=== PATIENT | male | born 1950 | race Caucasian/White ===

== ENCOUNTER 2018-09-05 08:59 | Day surgery (SDC) | payer MEDICARE ==
[2018-09-02 09:57] VITALS: BMI 20.9
[~2018-09-05 08:59] MED LIST: LACTATED RINGERS 1,000 ML IV SCH; LIDOCAINE 1% 20 ML VIAL (10MG/ML) FOR IV START INTRADERMA PRN
[2018-09-05 09:54] VITALS: RESP 16; TEMP 98.1
[2018-09-05] MEDS ORDERED: PROPOFOL 10 MG/ML 20 ML VIAL IV ONE (10:44)
[2018-09-05] MEDS ORDERED: LIDOCAINE 1% INJ 10MG/ML (20 ML MDV) ONE (10:44)
--- NOTE | 2018-09-05 11:07 | P.PCN ---
Date of Procedure: 09/05/18 Description of Procedure: BRIEF HISTORY: 68-year-old male who presents for outpatient evaluation with EGD. The patient is a symptoms of reflux for approximately one year. Currently he is on daily H2 antagonist therapy with good control of his symptoms. Previously he had symptoms of daily heartburn, sour taste in his mouth and globus. No prior EGD reported. PROCEDURE PERFORMED: Esophagogastroduodenoscopy with biopsy. PREOPERATIVE DIAGNOSIS: GERD. ESTIMATED BLOOD LOSS: Minimal. IV sedation per anesthesia. PROCEDURE: After informed consent was obtained, the patient was brought into the endoscopy unit. IV sedation was administered by Anesthesia under continuous monitoring. Initially the Olympus GIF-190 video endoscope was inserted into the mouth. Esophagus intubated without any difficulty. It was gradually advanced into the stomach and duodenum and carefully examined. The bulb and the second part of the duodenum appeared normal, with biopsies taken. The scope at this time was withdrawn to the stomach, adequately insufflated with air, and upon careful examination, mucosa of the antrum, body, cardia and the fundus appeared normal except for some scattered erythema in the antrum and body suggestive of mild gastritis with biopsies taken.. The scope was then withdrawn into the esophagus. Small 2 cm hiatal hernia noted. The GE junction was located at 43 cm from the incisors and biopsies. The esophagus appeared normal. There were no erosions or ulcerations seen and the patient tolerated the procedure well. IMPRESSION: 1. Mild gastritis antrum and body, biopsied. 2. Duodenal biopsies. GE junction biopsies. RECOMMENDATIONS: The findings of this examination were discussed with the patient and his significant other. Okay to resume diet. Continue daily H2 antagonist therapy. Await pathology from biopsies.
[2018-09-05 11:27] VITALS: BP 131/78; PULSE 52
== END 2018-09-05 11:45 | disposition home or self-care (01) ==
LOC: ORWHC2ENDO 08:59
PROVIDERS: ATTEND Internal Medicine
DX: K29.80 Duodenitis without bleeding (principal); K29.50 Unspecified chronic gastritis without bleeding; K44.9 Diaphragmatic hernia without obstruction or gangrene; K21.9 Gastro-esophageal reflux disease without esophagitis; I25.10 Atherosclerotic heart disease of native coronary artery without angina pectoris; Z86.73 Personal history of transient ischemic attack (TIA), and cerebral infarction without residual deficits; Z79.82 Long term (current) use of aspirin; Z79.899 Other long term (current) drug therapy; Z83.6 Family history of other diseases of the respiratory system; Z88.5 Allergy status to narcotic agent
CPT/HCPCS: 88305; 43239; J2001; J2704

== ENCOUNTER 2019-03-26 17:20 | Inpatient (IN) | payer MEDICARE ==
[2019-03-26] MEDS ORDERED: ONDANSETRON 4 MG/2 ML VIAL IVP STA (17:45)
[2019-03-26] MEDS ORDERED: SODIUM CHLORIDE 0.9% 500 ML 500 ML IV STA (17:45)
[2019-03-26] MEDS ORDERED: HYDROmorphone 1 MG/ML 1 ML SYRINGE IVP STA ×3 (17:46→19:15)
--- NOTE | 2019-03-26 18:03 | ED ---
General Adult HPI - General Chief complaint: Abdominal Pain Stated complaint: abd pain Time Seen by Provider: 03/26/19 17:39 Source: patient, RN notes reviewed, old records reviewed Mode of arrival: ambulatory Limitations: no limitations - History of Present Illness Initial comments: 68-year-old male presents for evaluation of abdominal pain. Patient's symptoms began at approximately noon today. Describes the pain as constant sharp mid abdominal pain. He had one episode of vomiting just prior to arrival. He has previous history of cholecystectomy, no other abdominal surgeries. Denies chest pain or dyspnea. Denies fever or chills. Denies dysuria or hematuria. Denies flank pain. - Related Data Home Medications Medication Instructions Recorded Confirmed Acetaminophen [Tylenol] 325 mg PO HS 09/02/18 09/05/18 Aspirin [Adult Low Dose Aspirin EC] 81 mg PO HS 09/02/18 09/05/18 Famotidine [Pepcid AC] 10 mg PO DAILY 09/02/18 09/05/18 Lion Froy Vitamin 1 tab PO DAILY 09/02/18 09/05/18 Melatonin 1 mg PO HS 09/02/18 09/05/18 Tadalafil [Cialis] 5 mg PO DAILY 09/02/18 09/05/18 diphenhydrAMINE [Benadryl] 25 mg PO HS 09/02/18 09/05/18 Allergies Allergy/AdvReac Type Severity Reaction Status Date / Time acetaminophen [From Vicodin] Allergy Hallucinati Verified 03/26/19 17:30 ons hydrocodone [From Vicodin] Allergy Hallucinati Verified 03/26/19 17:30 ons propoxyphene Allergy Abdominal Verified 03/26/19 17:30 [From Darvocet-N] Pain Review of Systems ROS Statement: Those systems with pertinent positive or pertinent negative responses have been documented in the HPI. ROS Other: All systems not noted in ROS Statement are negative. Past Medical History Past Medical History: CVA/TIA, GERD/Reflux, Prostate Disorder Additional Past Medical History / Comment(s): hx irregular heart rate pts states gone now, hx fluid around heart History of Any Multi-Drug Resistant Organisms: None Reported Past Surgical History: Cholecystectomy, Heart Catheterization, Orthopedic Surgery Additional Past Surgical History / Comment(s): rt knee x2, lt knee 1 arthroscopy, rt knee surgery, Past Anesthesia/Blood Transfusion Reactions: No Reported Reaction Past Psychological History: No Psychological Hx Reported Smoking Status: Never smoker Past Alcohol Use History: None Reported Past Drug Use History: None Reported - Past Family History Daughter(s) Family Medical History: Pulmonary Embolus General Exam Limitations: no limitations General appearance: alert, in no apparent distress Head exam: Present: atraumatic, normocephalic Eye exam: Present: normal appearance, PERRL ENT exam: Present: normal exam Neck exam: Present: normal inspection. Absent: tenderness, meningismus Respiratory exam: Present: normal lung sounds bilaterally. Absent: respiratory distress, wheezes Cardiovascular Exam: Present: regular rate, normal rhythm GI/Abdominal exam: Present: soft, tenderness. Absent: distended, guarding, rebound Extremities exam: Present: normal inspection, normal capillary refill Neurological exam: Present: alert, oriented X3, CN II-XII intact. Absent: motor sensory deficit Psychiatric exam: Present: normal affect, normal mood Skin exam: Present: warm, dry, intact. Absent: cyanosis, diaphoretic Course Vital Signs 03/26/19 17:26 Temperature 98.6 F Pulse Rate 64 Respiratory 18 Rate Blood Pressure 133/74 O2 Sat by Pulse 98 Oximetry - Reevaluation(s) Reevaluation #1: 03/26/19 19:16 Patient reevaluated with persistent abdominal pain, CT of the abdomen pending. Patient reevaluated, no rebound, no guarding, minimal diffuse tenderness. Normal pulse exam. EKG Findings - EKG Comments: EKG Findings:: EKG: Sinus rhythm with PACs, rate of 61, MS interval 128, QRS duration 88, QTC 448, no ST segment elevation Medical Decision Making - Medical Decision Making 68-year-old male presenting with periumbilical abdominal pain. Pain is moderate to severe. Workup in the emergency department reveals mild leukocytosis 10.4, hemoglobin 14.5, R lites are within normal limits and normal lactic acid. Patient's has an x-ray which is negative for obstruction or free air. CT abdomen is performed which shows acute appendicitis with an appendix measuring 16 mm with adjacent fat stranding. I discussed case with Dr. Traore, regarding urgent surgical evaluation. Patient's primary care physician is Dr. Alston, requested general surgery group of Dr. Traore, Dr. Paz. Dr. Kessler will be placed on for medical management. - Lab Data Result diagrams: 03/26/19 18:12 03/26/19 18:12 Lab Results 03/26/19 03/26/19 03/26/19 Range/Units 18:12 18:12 18:12 WBC 10.9 H (3.8-10.6) k/uL RBC 4.82 (4.30-5.90) m/uL Hgb 14.5 (13.0-17.5) gm/dL Hct 44.5 (39.0-53.0) % MCV 92.5 (80.0-100.0) fL MCH 30.2 (25.0-35.0) pg MCHC 32.7 (31.0-37.0) g/dL RDW 12.7 (11.5-15.5) % Plt Count 156 (150-450) k/uL Neutrophils % 87 % Lymphocytes % 7 % Monocytes % 5 % Eosinophils % 0 % Basophils % 0 % Neutrophils # 9.5 H (1.3-7.7) k/uL Lymphocytes # 0.7 L (1.0-4.8) k/uL Monocytes # 0.5 (0-1.0) k/uL Eosinophils # 0.0 (0-0.7) k/uL Basophils # 0.0 (0-0.2) k/uL PT (9.0-12.0) sec INR (<1.2) APTT (22.0-30.0) sec Sodium 136 L (137-145) mmol/L Potassium 4.7 (3.5-5.1) mmol/L Chloride 102 (98-107) mmol/L Carbon Dioxide 25 (22-30) mmol/L Anion Gap 9 mmol/L BUN 18 (9-20) mg/dL Creatinine 0.75 (0.66-1.25) mg/dL Est GFR (CKD-EPI)AfAm >90 (>60 ml/min/1.73 sqM) Est GFR (CKD-EPI)NonAf >90 (>60 ml/min/1.73 sqM) Glucose 119 H (74-99) mg/dL POC Glucose (mg/dL) (75-99) mg/dL POC Glu Video Recorder Mechanic ID Plasma Lactic Acid Vladimir 1.5 (0.7-2.0) mmol/L Calcium 9.6 (8.4-10.2) mg/dL Total Bilirubin 1.0 (0.2-1.3) mg/dL AST 28 (17-59) U/L ALT 17 (4-49) U/L Alkaline Phosphatase 63 (38-126) U/L Total Protein 7.5 (6.3-8.2) g/dL Albumin 4.6 (3.5-5.0) g/dL Amylase 68 (30-110) U/L Lipase 97 (23-300) U/L 03/26/19 03/26/19 Range/Units 18:12 19:06 WBC (3.8-10.6) k/uL RBC (4.30-5.90) m/uL Hgb (13.0-17.5) gm/dL Hct (39.0-53.0) % MCV (80.0-100.0) fL MCH (25.0-35.0) pg MCHC (31.0-37.0) g/dL RDW (11.5-15.5) % Plt Count (150-450) k/uL Neutrophils % % Lymphocytes % % Monocytes % % Eosinophils % % Basophils % % Neutrophils # (1.3-7.7) k/uL Lymphocytes # (1.0-4.8) k/uL Monocytes # (0-1.0) k/uL Eosinophils # (0-0.7) k/uL Basophils # (0-0.2) k/uL PT 9.8 (9.0-12.0) sec INR 0.9 (<1.2) APTT 22.5 (22.0-30.0) sec Sodium (137-145) mmol/L Potassium (3.5-5.1) mmol/L Chloride (98-107) mmol/L Carbon Dioxide (22-30) mmol/L Anion Gap mmol/L BUN (9-20) mg/dL Creatinine (0.66-1.25) mg/dL Est GFR (CKD-EPI)AfAm (>60 ml/min/1.73 sqM) Est GFR (CKD-EPI)NonAf (>60 ml/min/1.73 sqM) Glucose (74-99) mg/dL POC Glucose (mg/dL) 114 H (75-99) mg/dL POC Glu Video Recorder Mechanic ID Marizol Mckeon Plasma Lactic Acid Vladimir (0.7-2.0) mmol/L Calcium (8.4-10.2) mg/dL Total Bilirubin (0.2-1.3) mg/dL AST (17-59) U/L ALT (4-49) U/L Alkaline Phosphatase (38-126) U/L Total Protein (6.3-8.2) g/dL Albumin (3.5-5.0) g/dL Amylase (30-110) U/L Lipase (23-300) U/L Disposition Clinical Impression: Acute appendicitis Disposition: ADMITTED IP TO THIS HOSP Condition: Stable Is patient prescribed a controlled substance at d/c from ED?: No Referrals: Mary Alston MD [Primary Care Provider] - 1-2 days Decision to Admit Reason: Admit from EC Decision Date: 03/26/19 Decision Time: 20:11
[2019-03-26 18:54] LABS: Basophils % (A) 0 %; Eosinophils % (A) 0 %; HCT 44.5 % (39.0-53.0); HGB 14.5 gm/dL (13.0-17.5); Lymphocytes # (A) 0.7 k/uL (1.0-4.8); Lymphocytes % (A) 7 %; MCH 30.2 pg (25.0-35.0); MCHC 32.7 g/dL (31.0-37.0); MCV 92.5 fL (80.0-100.0); Mean Platelet Volume 8.5; Monocytes # (A) 0.5 k/uL (0-1.0); Monocytes % (A) 5 %; Neutrophils # (A) 9.5 k/uL (1.3-7.7); Neutrophils % (A) 87 %; Platelet Count 156 k/uL (150-450); RBC 4.82 m/uL (4.30-5.90); RDW 12.7 % (11.5-15.5); WBC 10.9 k/uL (3.8-10.6)
[2019-03-26 19:05] LABS: Potassium 4.7 mmol/L (3.5-5.1)
[2019-03-26] MEDS ORDERED: LORazepam 2 MG/ML INJ IV STA (19:05)
[2019-03-26 19:06] LABS: ALT 17 U/L (4-49); AST 28 U/L (17-59); African American GFR (CKD) >90 (>60 ml/min/1.73 sqM); Albumin 4.6 g/dL (3.5-5.0); Alkaline Phosphatase 63 U/L (38-126); Amylase 68 U/L (30-110); Anion Gap 9 mmol/L; Blood Urea Nitrogen 18 mg/dL (9-20); Calcium 9.6 mg/dL (8.4-10.2); Carbon Dioxide 25 mmol/L (22-30); Chloride 102 mmol/L (98-107); Glucose 119 mg/dL (74-99); Non-African American GFR(CKD) >90 (>60 ml/min/1.73 sqM); Sodium 136 mmol/L (137-145); Total Protein 7.5 g/dL (6.3-8.2)
[2019-03-26 19:09] LABS: INR 0.9 (<1.2)
[2019-03-26 19:10] LABS: Partial Thromboplastin Time 22.5 sec (22.0-30.0); Prothrombin Time 9.8 sec (9.0-12.0)
--- NOTE | 2019-03-26 19:12 | XR ---
EXAMINATION TYPE: XR KUB DATE OF EXAM: 03/26/2019 COMPARISON: NONE HISTORY: Abdominal pain and nausea TECHNIQUE: 2 views FINDINGS: 2 views upright were obtained. There is no sign of intestinal obstruction or pneumoperitone um. Fecal pattern is normal. There are clips from cholecystectomy. There is no sign of a mass. Lung b ases are clear. IMPRESSION: Nonacute abdomen.
[2019-03-26 19:14] LABS: Glucose,Whole Blood 114 mg/dL (75-99)
--- NOTE | 2019-03-26 19:58 | CT ---
EXAMINATION TYPE: CT abdomen pelvis w con DATE OF EXAM: 03/26/2019 COMPARISON: None HISTORY: Generalized abdominal pain with nausea and vomiting. CT DLP: 774.5 mGycm Automated exposure control for dose reduction was used. CONTRAST: Performed with IV Contrast, patient injected with 100 mL of Isovue 300. Multiple axial sections were obtained from the diaphragm to the floor the pelvis with intravenous con trast FINDINGS: Lung bases are clear of consolidation. There is no pleural effusion. Heart size is normal. There is n o pericardial effusion. Liver spleen pancreas appear normal. Bile ducts are not dilated. There are cl ips from cholecystectomy. Stomach is intact. There is small hiatal hernia. There is no adrenal mass. Kidneys show satisfactory contrast opacification. There is no hydronephrosi s. There is no retroperitoneal adenopathy. The appendix is posterior with wall thickening and surrounding edema. There is fat stranding in the r ight paracolic gutter. Appendix measures up to 16 mm. Ureters are not dilated. Delayed images show normal renal excretion. Bladder distends smoothly. There is no inguinal hernia. There is no free fluid in the pelvis. Lumbar vertebra have normal alignment. Posterior elements are intact. There is degenerative disc spac e narrowing at L2-3 with spur formation. Bony pelvis is intact. There is multilevel hypertrophic spurring in the thoracic and lumbar spine. There is no mesenteric edema. There is no ascites or free air. There is no sign of a bowel obstructio n. IMPRESSION: Thickening and edema and surrounding inflammatory process related to acute appendicitis.
[2019-03-26] MEDS ORDERED: PIPERACILLIN-TAZOBACTAM 3.375 GM in SODIUM CHLORIDE 0.9% 100 ML IVPB STA (20:00)
[2019-03-26] MEDS ORDERED: NALOXONE 0.4 MG/ML 1 ML VIAL IV PRN (20:07)
[2019-03-26 20:21] LABS: Appearance,Urine Clear (Clear); Bilirubin,Urine Negative (Negative); Blood,Urine Negative (Negative); Color,Urine Yellow; Glucose,Urine (UA) Negative (Negative); Ketones,Urine 1+ (Negative); Leukocyte Esterase,Urine Negative (Negative); Nitrite,Urine Negative (Negative); PH, Urine 5.5 (5.0-8.0); Protein,Urine Negative (Negative); Urobilinogen,Urine <2.0 mg/dL (<2.0)
[2019-03-26 20:23] LABS: Specific Gravity,Urine 1.048 (1.001-1.035)
[2019-03-26] MEDS ORDERED: LIDOCAINE URO-JET JELLY 2% 5 ML KIT URETHRAL ONE (20:36)
[2019-03-26] MEDS: SODIUM CHLORIDE 0.9% 1,000 ML IV SCH (20:40)
[2019-03-26] MEDS ORDERED: PANTOPRAZOLE 40 MG/10 ML VIAL IVP SCH (21:00)
[2019-03-26] MEDS ORDERED: MIDAZOLAM 2 MG/2 ML VIAL ONE (21:18)
[2019-03-26] MEDS ORDERED: diphenhydrAMINE 50 MG/ML 1 ML VIAL ONE (21:18)
[2019-03-26] MEDS ORDERED: NEOSTIGMINE 1 MG/ML 10 ML VIAL ONE (21:18)
[2019-03-26] MEDS ORDERED: LIDOCAINE 1% INJ 10MG/ML (20 ML MDV) ONE (21:18)
[2019-03-26] MEDS ORDERED: fentaNYL (PF) 50 MCG/ML 2 ML AMP ONE (21:18)
[2019-03-26] MEDS ORDERED: DEXAMETHASONE SOD PHOS (MDV) 100 MG/10 ML VIAL ONE (21:18)
[2019-03-26] MEDS ORDERED: SUCCINYLCHOLINE CHLORIDE 100 MG/5 ML SYR IV ONE (21:18)
[2019-03-26] MEDS ORDERED: KETOROLAC 30 MG/ML 1 ML VIAL ONE (21:18)
[2019-03-26] MEDS ORDERED: PROPOFOL 10 MG/ML 20 ML VIAL IV ONE (21:18)
[2019-03-26] MEDS ORDERED: GLYCOPYRROLATE 0.2 MG/ML 2 ML VIAL ONE (21:18)
[2019-03-26] MEDS ORDERED: ROCURONIUM BROMIDE 10 MG/ML 5 ML VIAL IV ONE (21:18)
--- NOTE | 2019-03-26 21:22 | P.GSHP ---
History of Present Illness H&P Date: 03/26/19 Chief Complaint: abdominal pain The patient is a 68 year old man who developed abdominal pain earlier today. Due to persistent pain he came into the ED and workup was performed suggestive of acute appendicitis. Denied fever or chills. Had emesis x 1. Past Medical History Past Medical History: CVA/TIA, GERD/Reflux, Prostate Disorder Additional Past Medical History / Comment(s): hx irregular heart rate pts states gone now, hx fluid around heart History of Any Multi-Drug Resistant Organisms: None Reported Past Surgical History: Cholecystectomy, Heart Catheterization, Orthopedic Surgery Additional Past Surgical History / Comment(s): rt knee x2, lt knee 1 arthroscopy, rt knee surgery, Past Anesthesia/Blood Transfusion Reactions: No Reported Reaction Past Psychological History: No Psychological Hx Reported Smoking Status: Never smoker Past Alcohol Use History: None Reported Past Drug Use History: None Reported - Past Family History Daughter(s) Family Medical History: Pulmonary Embolus Medications and Allergies Home Medications Medication Instructions Recorded Confirmed Type Acetaminophen [Tylenol] 325 mg PO HS 09/02/18 09/05/18 History Aspirin [Adult Low Dose Aspirin EC] 81 mg PO HS 09/02/18 09/05/18 History Famotidine [Pepcid AC] 10 mg PO DAILY 09/02/18 09/05/18 History Lion Froy Vitamin 1 tab PO DAILY 09/02/18 09/05/18 History Melatonin 1 mg PO HS 09/02/18 09/05/18 History Tadalafil [Cialis] 5 mg PO DAILY 09/02/18 09/05/18 History diphenhydrAMINE [Benadryl] 25 mg PO HS 09/02/18 09/05/18 History Allergies Allergy/AdvReac Type Severity Reaction Status Date / Time acetaminophen [From Vicodin] Allergy Hallucinati Verified 03/26/19 17:30 ons hydrocodone [From Vicodin] Allergy Hallucinati Verified 03/26/19 17:30 ons propoxyphene Allergy Abdominal Verified 03/26/19 17:30 [From Darvocet-N] Pain Surgical - Exam Osteopathic Statement: *. No significant issues noted on an osteopathic structural exam other than those noted in the History and Physical/Consult. Vital Signs Temp Pulse Resp BP Pulse Ox 98.6 F 64 18 133/74 98 03/26/19 17:26 03/26/19 17:26 03/26/19 17:26 03/26/19 17:26 03/26/19 17:26 - General well developed, well nourished, no distress - Eyes normal ocular movement - Neck trachea midline - Respiratory normal expansion, clear to auscultation - Cardiovascular Rhythm: regular - Abdomen Abdomen: soft, tender (A lower quadrant), bowel sounds (Hypoactive) Results - Labs 03/26/19 18:12 03/26/19 18:12 Abnormal Lab Results - Last 24 Hours (Table) 03/26/19 03/26/19 03/26/19 Range/Units 18:12 18:12 19:06 WBC 10.9 H (3.8-10.6) k/uL Neutrophils # 9.5 H (1.3-7.7) k/uL Lymphocytes # 0.7 L (1.0-4.8) k/uL Sodium 136 L (137-145) mmol/L Glucose 119 H (74-99) mg/dL POC Glucose (mg/dL) 114 H (75-99) mg/dL Diabetes panel 03/26/19 Range/Units 18:12 Sodium 136 L (137-145) mmol/L Potassium 4.7 (3.5-5.1) mmol/L Chloride 102 (98-107) mmol/L Carbon Dioxide 25 (22-30) mmol/L BUN 18 (9-20) mg/dL Creatinine 0.75 (0.66-1.25) mg/dL Glucose 119 H (74-99) mg/dL Calcium 9.6 (8.4-10.2) mg/dL AST 28 (17-59) U/L ALT 17 (4-49) U/L Alkaline Phosphatase 63 (38-126) U/L Total Protein 7.5 (6.3-8.2) g/dL Albumin 4.6 (3.5-5.0) g/dL Calcium panel 03/26/19 Range/Units 18:12 Calcium 9.6 (8.4-10.2) mg/dL Albumin 4.6 (3.5-5.0) g/dL Pituitary panel 03/26/19 Range/Units 18:12 Sodium 136 L (137-145) mmol/L Potassium 4.7 (3.5-5.1) mmol/L Chloride 102 (98-107) mmol/L Carbon Dioxide 25 (22-30) mmol/L BUN 18 (9-20) mg/dL Creatinine 0.75 (0.66-1.25) mg/dL Glucose 119 H (74-99) mg/dL Calcium 9.6 (8.4-10.2) mg/dL Adrenal panel 03/26/19 Range/Units 18:12 Sodium 136 L (137-145) mmol/L Potassium 4.7 (3.5-5.1) mmol/L Chloride 102 (98-107) mmol/L Carbon Dioxide 25 (22-30) mmol/L BUN 18 (9-20) mg/dL Creatinine 0.75 (0.66-1.25) mg/dL Glucose 119 H (74-99) mg/dL Calcium 9.6 (8.4-10.2) mg/dL Total Bilirubin 1.0 (0.2-1.3) mg/dL AST 28 (17-59) U/L ALT 17 (4-49) U/L Alkaline Phosphatase 63 (38-126) U/L Total Protein 7.5 (6.3-8.2) g/dL Albumin 4.6 (3.5-5.0) g/dL - Imaging CT scan - abdomen: report reviewed, image reviewed Assessment and Plan (1) Acute appendicitis Current Visit: Yes Status: Acute Code(s): K35.80 - UNSPECIFIED ACUTE APPENDI CITIS SNOMED Code(s): 54348112 Plan: Laparoscopic appendectomy possible open. The procedure, risks, complications were discussed. Usual postoperative course was discussed. Questions were encouraged and answered. He'll be given DVT and ulcer prophylaxis. Prophylactic antibiotics. Further recommendations to follow.
[2019-03-26] MEDS ORDERED: IV FLUID CONTINUATION 900 ML IV ONE ×2 (21:44)
[2019-03-26] MEDS ORDERED: BUPIVACAINE (PF) 0.25% 30 ML VIAL SQ ONE ×2 (21:44→22:10)
[2019-03-26] MEDS ORDERED: traMADol 50 MG TAB PO PRN (22:09)
[2019-03-26] MEDS ORDERED: METOCLOPRAMIDE 5 MG/ML 2 ML VIAL IVP PRN (22:09)
[2019-03-26] MEDS ORDERED: ONDANSETRON 4 MG/2 ML VIAL IVP ONE (22:15)
[2019-03-26] MEDS ORDERED: HYDROmorphone 1 MG/ML 1 ML SYRINGE IVP ONE ×2 (22:17→22:23)
--- NOTE | 2019-03-26 22:17 | P.OP ---
Date of Procedure: 03/26/19 Preoperative Diagnosis: Acute appendicitis Postoperative Diagnosis: Acute gangrenous appendicitis Procedure(s) Performed: Laparoscopic appendectomy Anesthesia: RALPH Surgeon: Denise Traore Estimated Blood Loss (ml): 10 Pathology: other (Appendix) Condition: stable Disposition: PACU Indications for Procedure: Patient presented with abdominal pain. Workup was suggestive of appendicitis. Description of Procedure: The patient's taken the operative suite was prepped and draped in the usual sterile manner under a general endotracheal anesthetic. An infraumbilical incision was made and a Veress needle was placed into the abdominal cavity. Pneumoperitoneum was established with CO2 gas. Sites are chosen for accessory trochars needs are placed through small skin incisions. N the right lateral abdomen which was aspirated. The appendix itself was retrocecal. The terminal ileum and cecum were mobilized along the peritoneal reflection and rotated medially. The appendix was then dissected free to the base. The appendiceal artery was divided with harmonic scissors. The base of the appendix was ligated with 0 PDS Endoloops 2. The appendix was then transected and placed into a specimen retrieval bag. The paracolic gutter and right subdiaphragmatic space were then irrigated and aspirated. The pneumoperitoneum was then released. The trochars were removed. The specimen retrieval bag was removed. The fascia at the umbilicus was closed with 0 Vicryl. The skin incisions were closed with 4-0 Vicryl in a subcuticular manner. Steri-Strips and dressings were applied. He tolerated the procedure without difficulty and was taken recovery room in satisfactory condition. According to or personnel, all counts were correct.
[2019-03-27] MEDS: KETOROLAC 30 MG/ML 1 ML VIAL IVP SCH ×4 (00:16→16:24)
[2019-03-27] MEDS: HEPARIN SODIUM,PORCINE 5,000 UNIT/ML 1 ML VIAL SQ SCH ×3 (00:30→16:23)
[2019-03-27] MEDS: PIPERACILLIN-TAZOBACTAM 3.375 GM in SODIUM CHLORIDE 0.9% 100 ML IVPB SCH ×2 (04:41→12:01)
--- NOTE | 2019-03-27 06:24 | CONS ---
CONSULTATION DATE OF SERVICE: 03/26/2019 CHIEF COMPLAINT: Abdominal pain. HISTORY OF PRESENT ILLNESS: This 68-year-old gentleman with a past medical history of multiple medical problems including CVA, TIA, GERD, history of prostate disorder, history of irregular heartbeats, cholecystomy, cardiac catheterization, being followed by [facility] in the outpatient setting, was complaining of abdominal pain. The pain started approximately at noon, felt initially in the mid part of the abdomen radiating upwards. The patient also had some episodes of vomiting. Patient previously had a cholecystectomy remotely. The patient was evaluated in the ER. The plain x-ray abdomen was nonspecific. CT scan of the abdomen and pelvis was done in the ER, showed thickening and edema around the appendix, history of possible acute appendicitis. The patient is closely monitored at this time. There is no history of fever, rigors. No history of headache, loss of consciousness or seizures. PAST MEDICAL HISTORY: History of CVA, TIA, GERD, history of prostate disorder, cholecystectomy. MEDICATIONS PRIOR TO ADMISSION: 1. Benadryl 25 mg q.h.s. 2. Cialis 5 mg daily p.r.n. 3. Melatonin 40 mg q.h.s. 4. Vitamins 1 p.o. daily. 5. Pepcid AC 10 mg. 6. Aspirin 81 mg. 7. Tylenol p.r.n. ALLERGIES: VICODIN AND DARVOCET-N 100. FAMILY HISTORY: History of pulmonary embolism in the family. SOCIAL HISTORY: History of smoking. Occasional alcohol intake. REVIEW OF SYSTEMS: ENT: No history of diminished hearing or vision. CARDIOVASCULAR: No angina or palpitations. RESPIRATORY: As mentioned earlier. GI: As mentioned earlier. : No dysuria. NERVOUS SYSTEM: No numbness or weakness. ALLERGY/IMMUNOLOGY: No asthma or hayfever. MUSCULOSKELETAL: As mentioned earlier. HEMATOLOGY/ONCOLOGY: Negative. ENDOCRINE: No history of diabetes or hypothyroidism. SKIN: Negative. CONSTITUTIONAL: As mentioned earlier. PSYCHIATRY: As mentioned earlier. PHYSICAL EXAMINATION: Alert and oriented x3. Pulse is 64, blood pressure 130/70, respiration 18, temperature 98.6, pulse ox 98% on room air. HEENT: Conjunctivae clear. Oral mucosa moist. NECK: No jugular venous distention. No lymph node enlargement. RESPIRATORY: Breath sounds diminished at the bases. No rhonchi, no crackles. HEART: S1 and S2, muffled. ABDOMEN: Soft. Mild diffuse discomfort on palpation present. No guarding, no rigidity. No rebound tenderness at this time. Bowel sounds diminished. LEGS: No edema, no swelling. NERVOUS: Higher functions as mentioned earlier. Moves all four limbs. No focal motor or sensory deficits. LYMPHATICS: No lymph node in neck or axilla. SKIN: No rash. JOINTS: No active deforming arthropathy. LAB STUDIES: WBC 10.9, sodium 136. ASSESSMENT: 1. Abdominal pain with possible acute appendicitis. 2. Increased WBC. 3. Hyponatremia. 4. Increased random blood sugar. 5. Gastroesophageal reflux disease. 6. History of cerebrovascular accident, transient ischemic attack. 7. History of prostate disorder. 8. History of irregular cardiac rhythm. 9. History of cholecystectomy. RECOMMENDATIONS AND DISCUSSION: In this 68-year-old gentleman who presented with multiple medical issues, at this time we will follow the patient closely with Surgery, resume the home medications, DVT prophylaxis, broad-spectrum IV antibiotics, symptomatic treatment, Protonix IV. Will follow the patient closely with you. The patient will be asked to follow with Dr. Alston closely after discharge. Thank you, Dr. Paz, for letting us participate in the care of this patient. MMODL / IJN: [id number] /
[2019-03-27] MEDS ORDERED: PIPERACILLIN-TAZOBACTAM 3.375 GM in SODIUM CHLORIDE 0.9% 100 ML IVPB SCH (08:00)
[2019-03-27 08:29] LABS: Basophils % (A) 0 %; Eosinophils % (A) 0 %; HCT 39.5 % (39.0-53.0); HGB 12.8 gm/dL (13.0-17.5); Lymphocytes # (A) 0.5 k/uL (1.0-4.8); Lymphocytes % (A) 4 %; MCH 30.4 pg (25.0-35.0); MCHC 32.3 g/dL (31.0-37.0); MCV 93.9 fL (80.0-100.0); Mean Platelet Volume 8.3; Monocytes # (A) 0.4 k/uL (0-1.0); Monocytes % (A) 4 %; Neutrophils # (A) 10.8 k/uL (1.3-7.7); Neutrophils % (A) 92 %; Platelet Count 119 k/uL (150-450); RBC 4.21 m/uL (4.30-5.90); RDW 12.7 % (11.5-15.5); WBC 11.8 k/uL (3.8-10.6)
[2019-03-27] MEDS ORDERED: TAMSULOSIN 0.4 MG CAP.ER.24H PO SCH (08:30)
[2019-03-27 08:50] LABS: African American GFR (CKD) >90 (>60 ml/min/1.73 sqM); Anion Gap 8 mmol/L; Blood Urea Nitrogen 23 mg/dL (9-20); Calcium 8.4 mg/dL (8.4-10.2); Carbon Dioxide 24 mmol/L (22-30); Chloride 99 mmol/L (98-107); Glucose 159 mg/dL (74-99); Non-African American GFR(CKD) 79 (>60 ml/min/1.73 sqM); Potassium 4.3 mmol/L (3.5-5.1); Sodium 131 mmol/L (137-145)
[2019-03-27] MEDS ORDERED: PANTOPRAZOLE 40 MG/10 ML VIAL IVP SCH (09:00)
[2019-03-27] MEDS: SODIUM CHLORIDE 0.9% 1,000 ML IV SCH ×2 (09:20→16:24)
--- NOTE | 2019-03-27 13:44 | P.PN ---
Progress Note - Text Progress Note Date: 03/27/19 The patient feels much better. No nausea or vomiting. Denies need for pain medication. Mild discomfort when walking. Will discharge home on antibiotics
--- NOTE | 2019-03-27 13:49 | P.DS ---
Providers Date of admission: 03/27/19 12:01 Expected date of discharge: 03/27/19 Attending physician: Denise Traore Consults: 03/26/19 20:08 Consult Physician Routine Consulting Provider: Shaila Kessler Consult Reason/Comments: Medical management, acute appendicitis Do you want consulting provider notified?: Already Contacted Primary care physician: Mary Alston - Discharge Diagnosis(es) (1) Acute appendicitis Current Visit: Yes Status: Acute Hospital Course: The patient presented with abdominal pain. Workup in the ER was suggestive of acute appendicitis. He was taken the OR where he underwent a laparoscopic appendectomy. He is Overnight on IV antibiotics. By postop day 1 his pain had resolved, no nausea or vomiting. [place] to be stable for discharge Pertinent Studies: CT Procedures: Laparoscopic appendectomy Patient Condition at Discharge: Good Plan - Discharge Summary New Discharge Prescriptions: New Ciprofloxacin HCl [Cipro] 500 mg PO Q12HR 7 Days #14 tablet No Action diphenhydrAMINE [Benadryl] 25 mg PO HS RX: Melatonin 1 mg PO HS Acetaminophen [Tylenol] 325 mg PO HS Tadalafil [Cialis] 5 mg PO DAILY Aspirin [Adult Low Dose Aspirin EC] 81 mg PO HS Famotidine [Pepcid AC] 10 mg PO DAILY Lion Froy Vitamin 1 tab PO DAILY RX: Vitamin B Complex 1 cap PO DAILY Discharge Medication List Acetaminophen [Tylenol] 325 mg PO HS 09/02/18 [History] Aspirin [Adult Low Dose Aspirin EC] 81 mg PO HS 09/02/18 [History] Famotidine [Pepcid AC] 10 mg PO DAILY 09/02/18 [History] Lion Froy Vitamin 1 tab PO DAILY 09/02/18 [History] RX: Melatonin 1 mg PO HS 09/02/18 [History] Tadalafil [Cialis] 5 mg PO DAILY 09/02/18 [History] diphenhydrAMINE [Benadryl] 25 mg PO HS 09/02/18 [History] Ciprofloxacin HCl [Cipro] 500 mg PO Q12HR 7 Days #14 tablet 03/27/19 [Rx] RX: Vitamin B Complex 1 cap PO DAILY 03/27/19 [History] Follow up Appointment(s)/Referral(s): Mary Alston MD [Primary Care Provider] - 1-2 days Eugenie,Denise, DO [Doctor of Osteopathic Medicine] - 2 Weeks Activity/Diet/Wound Care/Special Instructions: The Band-Aids may be removed on Wednesday and you may shower. Diet as tolerated. Tylenol or Motrin as needed for discomfort. Call or return to the ER if you develop fevers, chills, nausea or vomiting, return of right lower quadrant pain, wound concerns Discharge Disposition: HOME SELF-CARE
[2019-03-27 14:41] VITALS: BP 103/66; PULSE 60; RESP 14; TEMP 97.7
--- NOTE | 2019-03-27 21:22 | PN ---
PROGRESS NOTE DATE OF SERVICE: 03/27/2019 This 68-year-old gentleman who was admitted with abdominal pain with acute appendicitis, underwent laparoscopic appendectomy. Dr. Traore saw the patient. No chest pain. No palpitations. No fever. The patient is on broad-spectrum IV antibiotics. EXAM: Alert and oriented times three. Pulse 60, blood pressure 103/60, respiration 14, temperature 97.7, pulse ox 98% on room air. HEENT: Conjunctivae normal. NECK: No JVD. CARDIOVASCULAR: S1, S2 muffled. RESPIRATORY: Breath sounds diminished in the bases. Scattered rhonchi. ABDOMEN soft. Status post surgery. LEGS are no edema, no swelling. CENTRAL NERVOUS SYSTEM: No focal deficits. LAB STUDIES: WBC 11.2, hemoglobin 12.8, sodium 131. ASSESSMENT: 1. Abdominal pain with acute appendicitis, status post laparoscopic appendectomy and acute gangrenous appendicitis. 2. Increased WBC. 3. Hyponatremia. 4. Increased random blood sugar. 5. Gastroesophageal reflux disease. 6. History of cerebrovascular accident, transient ischemic attack. 7. History of prostate disorder. 8. History of irregular cardiac rhythm. 9. History of cholecystectomy. RECOMMENDATIONS AND DISCUSSION: Recommend to continue current medications, management and symptomatic treatment. Otherwise, I would recommend continue with followup and incentive spirometry. Closely follow with Dr. Alston after discharge. Resume the home medications and rest of the recommendations per surgery. Further recommendations to follow. MMODL / IJN: [id number] /
== END 2019-03-27 16:32 | disposition home or self-care (01) | DRG 342 ==
LOC: EC 17:20 → 6NMEDSUR 20:09 → OBSVTOIN 03-27 12:01
PROVIDERS: ADMIT Surgery; ATTEND Surgery
PROC: 0DTJ4ZZ Resection of Appendix, Percutaneous Endoscopic Approach (ICD-10-PCS; principal; 2019-03-26 20:48)
DX: K35.891 Other acute appendicitis without perforation, with gangrene (principal); E87.1 Hypo-osmolality and hyponatremia; K21.9 Gastro-esophageal reflux disease without esophagitis; Z79.82 Long term (current) use of aspirin; Z86.73 Personal history of transient ischemic attack (TIA), and cerebral infarction without residual deficits; Z87.891 Personal history of nicotine dependence; Z90.49 Acquired absence of other specified parts of digestive tract; Z98.890 Other specified postprocedural states; Z82.49 Family history of ischemic heart disease and other diseases of the circulatory system; Z88.6 Allergy status to analgesic agent; Z88.5 Allergy status to narcotic agent; Z88.8 Allergy status to other drugs, medicaments and biological substances
CPT/HCPCS: 36415; 51702; 74018; 74177; 80048; 80053; 81003; 82150; 83605; 83690; 85025; 85610; 85730; 88304; 93005; 96361; 96365; 96375; 96376; 99285

== ENCOUNTER → 2020-02-28 | Outpatient (CLI) | payer MEDICARE ==
--- NOTE | 2020-02-28 12:24 | XR ---
EXAMINATION TYPE: XR cervical spine comp DATE OF EXAM: 02/28/2020 TECHNIQUE: Frontal, lateral, oblique, and open mouth view of the cervical spine are obtained. HISTORY: R52 pain COMPARISON: None FINDINGS: The cervical spine is visualized in its entirety from C1 thru the top of T1 level, it is s atisfactory in alignment without evidence of acute fracture or dislocation. The pre-vertebral soft t issue appears within normal limits. The C1-C2 articulation is within normal limits on the open mouth view. Vertebral body heights are maintained. Mild disc space narrowing C4-C5 and C7-T1 levels The o blique images show uncovertebral and facet spurring causing [id number] right-sided neural josé miguel inal narrowing at C5-C6 level. Overlying soft tissue is unremarkable. IMPRESSION: As above.
--- NOTE | 2020-02-28 12:27 | XR ---
EXAMINATION TYPE: XR lumbar spine 2 or 3V DATE OF EXAM: 02/28/2020 CLINICAL HISTORY: Low back pain. TECHNIQUE: Frontal and lateral images of the lumbar spine are obtained. COMPARISON: CT abdomen and pelvis March 26, 2019 FINDINGS: There are 5 lumbar type vertebral bodies redemonstrated. Alignment is straightened with lo ss of normal lumbar lordosis on sagittal images. There is grade 1 retrolisthesis L2 on L3, L3 on L4, and L4 on L5 redemonstrated. Vertebral body heights maintained. Moderate to severe disc space narrowi ng and anterior spurring L2-L3 level redemonstrated. Additional prominent anterior spurring L1-L2 and L3-L4 levels redemonstrated. Bilateral pars defect L5 level are present confirmed on CT. Cholecystec mi clips redemonstrated. IMPRESSION: As above.
== END | disposition home or self-care (01) ==
LOC: RADXRMAIN 11:49
PROVIDERS: ATTEND Internal Medicine
DX: M48.02 Spinal stenosis, cervical region (principal); M48.061 Spinal stenosis, lumbar region without neurogenic claudication; M43.16 Spondylolisthesis, lumbar region; M47.816 Spondylosis without myelopathy or radiculopathy, lumbar region; M40.46 Postural lordosis, lumbar region
CPT/HCPCS: 72050; 72100

== ENCOUNTER 2023-06-16 07:48 | Day surgery (SDC) | payer MEDICARE ==
[~2023-06-16 07:48] MED LIST changes: -LACTATED RINGERS 1,000 ML IV SCH; +LIDOCAINE 1% (10MG/ML) FOR IV START INTRADERMA PRN; -LIDOCAINE 1% 20 ML VIAL (10MG/ML) FOR IV START INTRADERMA PRN
[2023-06-16] MEDS: LACTATED RINGERS 1,000 ML IV SCH (08:25)
[2023-06-16 08:59] VITALS: TEMP 97.9
[2023-06-16] MEDS ORDERED: PROPOFOL 10 MG/ML 20 ML VIAL IV ONE (09:12)
--- NOTE | 2023-06-16 09:38 | P.PCN ---
Date of Procedure: 06/16/23 Procedure(s) Performed: BRIEF HISTORY: Patient is a 73-year-old pleasant white man scheduled for an elective colonoscopy as a part of screening for colon cancer. PROCEDURE PERFORMED: Colonoscopy. PREOPERATIVE DIAGNOSIS: Screening for colon cancer. IV sedation per Anesthesia. PROCEDURE: After informed consent was obtained, the patient, was brought into the endoscopy unit. IV sedation was administered by Anesthesia under continuous monitoring. Digital rectal examination was normal. Initially the Olympus CF-160 flexible video colonoscope was then inserted in the rectum, gradually advanced into the cecum without any difficulty. Careful examination was performed as the scope was gradually being withdrawn. Ileocecal valve and the appendiceal orifice were visualized and appeared normal. Prep was excellent. Mucosa of the cecum, ascending colon, transverse colon, descending colon, sigmoid colon, and rectum appeared normal. Scattered sigmoid diverticulosis. Retroflexion was performed in the rectum and no lesions were seen. The patient tolerated the procedure well. IMPRESSION: Normal-appearing colon from rectum to cecum with no evidence of colorectal neoplasia. Scattered sigmoid diverticulosis RECOMMENDATIONS: Findings of this examination were discussed with the patient as well as his family. He was advised to have repeat screening colonoscopy in 10 years.
[2023-06-16 10:43] VITALS: BP 132/78; PULSE 60; RESP 20
== END 2023-06-16 10:26 | disposition home or self-care (01) ==
LOC: ORWHC2ENDO 07:48
PROVIDERS: ATTEND Internal Medicine Gastroenterology
DX: Z12.11 Encounter for screening for malignant neoplasm of colon (principal); K57.30 Diverticulosis of large intestine without perforation or abscess without bleeding; Z79.899 Other long term (current) drug therapy; Z98.890 Other specified postprocedural states
CPT/HCPCS: J2704; G0121

== ENCOUNTER 2024-01-02 21:25 | Inpatient (IN) | payer MEDICARE ==
--- NOTE | 2024-01-02 21:49 | ED ---
Arrhythmia/Palpitations HPI - General Chief Complaint: Arrhythmia/Palpitations Stated Complaint: sob, elevated heart rate Time Seen by Provider: 01/02/24 21:39 Source: patient, RN notes reviewed, old records reviewed Mode of arrival: ambulatory Limitations: no limitations - History of Present Illness Initial Comments: This is a 73-year-old male presenting with anxiety inability to breathe with possible history of COPD smoking and COPD coming in for severely elevated heart rate feels like his heart is racing in his chest. Patient's significant other is at bedside with history of A-fib and believes he may be in atrial fibrillation. Patient has no history of himself. He does have history of heart disease no recent fevers travel history or sick contacts no current chest pain MD Complaint: rapid heart beat, palpitations, irregular heart beat, atrial fibrillation -: hour(s) Arrhythmia History: other (No history of atrial fibrillation) Associated Symptoms: shortness of breath, anxiety Treatments Prior to Arrival: other (0) - Related Data Home Medications Medication Instructions Recorded Confirmed Aspirin [Adult Low Dose Aspirin EC] 81 mg PO HS 09/02/18 06/15/23 Famotidine [Pepcid AC] 20 mg PO AC-LUNCH 09/02/18 06/15/23 [place]roy Vitamin 1 tab PO DAILY 09/02/18 06/15/23 diphenhydrAMINE [Benadryl] 25 mg PO HS 09/02/18 06/15/23 tadalafiL [Cialis] 5 mg PO QAM 09/02/18 06/15/23 Acetaminophen [Tylenol Arthritis] 1 tab PO HS 06/15/23 06/15/23 Atorvastatin Calcium 10 mg PO QAM 06/15/23 06/15/23 Ergocalciferol [Vitamin D2 (1250 1 tab PO Q30D 06/15/23 06/15/23 Mcg = 28033 Iu)] Ubidecarenone [Co Q-10] 1 tab PO AC-SUPPER 06/15/23 06/15/23 Allergies Allergy/AdvReac Type Severity Reaction Status Date / Time hydrocodone [From Vicodin] Allergy Hallucinati Verified 06/15/23 10:34 ons propoxyphene Allergy Abdominal Verified 06/15/23 10:34 [From Darvocet-N] Pain Review of Systems ROS Statement: Those systems with pertinent positive or pertinent negative responses have been documented in the HPI. ROS Other: All systems not noted in ROS Statement are negative. Past Medical History Past Medical History: CVA/TIA, GERD/Reflux, Prostate Disorder Additional Past Medical History / Comment(s): hx irregular heart rate pts states gone now, hx fluid around heart yrs ago - infection resolved, BPH, TIA 1984 History of Any Multi-Drug Resistant Organisms: None Reported Past Surgical History: Appendectomy, Cholecystectomy, Heart Catheterization, Orthopedic Surgery Additional Past Surgical History / Comment(s): Rt knee arthroscopy x2, Lt knee arthroscopy ,lesions removed from rectum several yrs ago Past Anesthesia/Blood Transfusion Reactions: No Reported Reaction Past Psychological History: No Psychological Hx Reported Smoking Status: Former smoker - Past Family History Mother Family Medical History: CVA/TIA Father Family Medical History: Hypertension, Myocardial Infarction (MT) General Exam Limitations: no limitations General appearance: alert, anxious, in distress Head exam: Present: atraumatic, normocephalic, normal inspection Eye exam: Present: normal appearance, PERRL, EOMI. Absent: scleral icterus, conjunctival injection, periorbital swelling ENT exam: Present: normal exam, mucous membranes moist Neck exam: Present: normal inspection. Absent: tenderness, meningismus, lymphadenopathy Respiratory exam: Present: normal lung sounds bilaterally. Absent: respiratory distress, wheezes, rales, rhonchi, stridor Cardiovascular Exam: Present: tachycardia, irregular rhythm, normal heart sounds. Absent: systolic murmur, diastolic murmur, rubs, gallop, clicks GI/Abdominal exam: Present: soft, normal bowel sounds. Absent: distended, tenderness, guarding, rebound, rigid Extremities exam: Present: normal inspection, full ROM, normal capillary refill. Absent: tenderness, pedal edema, joint swelling, calf tenderness Back exam: Present: normal inspection Neurological exam: Present: alert, oriented X3, CN II-XII intact Psychiatric exam: Present: normal affect, normal mood Skin exam: Present: warm, dry, intact, normal color. Absent: rash Course Vital Signs 01/02/24 01/02/24 01/02/24 21:27 22:05 22:28 Temperature 97.8 F Pulse Rate 80 149 H 142 H Respiratory 16 20 18 Rate Blood Pressure 115/80 136/83 118/84 O2 Sat by Pulse 96 97 97 Oximetry 01/02/24 22:41 Temperature Pulse Rate 102 H Respiratory 20 Rate Blood Pressure 110/80 O2 Sat by Pulse 97 Oximetry - Reevaluation(s) Reevaluation #1: 01/02/24 22:13 Medical records reviewed Reevaluation #2: 01/02/24 23:06 Symptoms are improving Reevaluation #3: 01/02/24 23:06 Patient informed of results and questions answered Reevaluation #4: Was pt. sent in by a medical professional or institution (, [facility], OUTREACH REP, urgent care, hospital, or longterm...) When possible be specific @ -no Did you speak to anyone other than the patient for history (EMS, parent, family, police, friend...)? What history was obtained from this source @ -no Did you review nursing and triage notes (agree or disagree)? Why? @ -agree Are old charts reviewed (outside hosp., previous admission, EMS record, old EKG, old radiological studies, urgent care reports/EKG's, longterm records)? Report findings @ -yes Differential Diagnosis (chest pain, altered mental status, abdominal pain women, abdominal pain men, vaginal bleeding, weakness, fever, dyspnea, syncope, headache, dizziness, GI bleed, back pain, seizure, CVA, palpatations, mental health, musculoskeletal)? @ -prior EKG interpreted by me (3pts min.). @ -yes X-rays interpreted by me (1pt min.). @ -yes negative for acute disease CT interpreted by me (1pt min.). @ -no U/S interpreted by me (1pt. min.). @ -no What testing was considered but not performed or refused? (CT, X-rays, U/S, labs)? Why? @ -none What meds were considered but not given or refused? Why? @ -none Did you discuss the management of the patient with other professionals (professionals i.e. JOHNNA Florez, OUTREACH REP, lab, RT, psych nurse, psych social worker, disaster director, teacher, aoc plans intelligence officer chief, trimming caser)? Give summary @ -no Was smoking cessation discussed for >3mins.? @ -no Was critical care preformed (if so, how long)? @ -no Were there social determinants of health that impacted care today? How? (Homelessness, low income, unemployed, alcoholism, drug addiction, transportation, low edu. Level, literacy, decrease access to med. care, nursing home, rehab)? @ -none Was there de-escalation of care discussed even if they declined (Discuss DNR or withdrawal of care, Hospice)? DNR status @ -no What co-morbidities impacted this encounter? (DM, HTN, Smoking, COPD, CAD, Cancer, CVA, ARF, Chemo, Hep., AIDS, mental health diagnosis, sleep apnea, morbid obesity)? @ -none Was patient admitted / discharged? Hospital course, mention meds given and route, prescriptions, significant lab abnormalities, going to OR and other pertinent info. @ - Undiagnosed new problem with uncertain prognosis? @ -no Drug Therapy requiring intensive monitoring for toxicity (Heparin, Nitro, Insulin, Cardizem)? @ -no Were any procedures done? @ -no Diagnosis/symptom? @ - Acute, or Chronic, or Acute on Chronic? @ -Acute Uncomplicated (without systemic symptoms) or Complicated (systemic symptoms)? @ -Complicated Side effects of treatment? @ -no Exacerbation, Progression, or Severe Exacerbation? @ -exacerbation Poses a threat to life or bodily function? How? (Chest pain, USA, MT, pneumonia, PE, COPD, DKA, ARF, appy, cholecystitis, CVA, Diverticulitis, Homicidal, Suicidal, threat to staff... and all critical care pts) @ -yes Reevaluation #5: Differential Palpitations Ventricular arrhythmias, atrial arrhythmias, myocardial infarction, anemia, thyrotoxicosis, electrolyte imbalance, hypokalemia, pulmonary embolism, pulmonary disease, drugs, alcohol, anxiety, stress.... This is not meant to be an all-inclusive list. Differential Dyspnea: Coronary syndrome, arrhythmia, tamponade, asthma, COPD, pulmonary embolism, pneumonia, pneumothorax, pulmonary effusion, anaphylaxis, diabetic ketoacidosis, flailed chest, pulmonary contusion, diaphragmatic rupture, anemia, neuromuscular, this is not meant to be an all-inclusive list. - Consultations Consultation #1: Spoke with [facility] who agrees to admit this patient EKG Findings - EKG Comments: EKG Findings:: EKG is A-fib 141 QRS 93 QTc 373 - EKG Results: EKG: interpreted by [facility] Medical Decision Making - Medical Decision Making 73 male will be admitted for new onset atrial fibrillation with RVR, anticoagulation, rate control - Lab Data Result diagrams: 01/02/24 21:46 01/02/24 21:46 Lab Results 01/02/24 01/02/24 01/02/24 Range/Units 21:46 21:46 21:46 WBC 6.6 (3.8-10.6) k/uL RBC 4.89 (4.30-5.90) m/uL Hgb 15.1 (13.0-17.5) gm/dL Hct 45.7 (39.0-53.0) % MCV 93.5 (80.0-100.0) fL MCH 30.9 (25.0-35.0) pg MCHC 33.0 (31.0-37.0) g/dL RDW 12.5 (11.5-15.5) % Plt Count 158 (150-450) k/uL MPV 7.7 Neutrophils % 62 % Lymphocytes % 26 % Monocytes % 7 % Eosinophils % 3 % Basophils % 1 % Neutrophils # 4.0 (1.3-7.7) k/uL Lymphocytes # 1.7 (1.0-4.8) k/uL Monocytes # 0.5 (0-1.0) k/uL Eosinophils # 0.2 (0-0.7) k/uL Basophils # 0.1 (0-0.2) k/uL PT 10.4 (10.0-12.5) sec INR 0.9 (<1.2) APTT 23.9 (22.0-30.0) sec Sodium 139 (137-145) mmol/L Potassium 5.1 (3.5-5.1) mmol/L Chloride 106 (98-107) mmol/L Carbon Dioxide 27 (22-30) mmol/L Anion Gap 6 mmol/L BUN 35 H (9-20) mg/dL Creatinine 0.92 (0.66-1.25) mg/dL Est GFR (CKD-EPI)AfAm >90 (>60 ml/min/1.73 sqM) Est GFR (CKD-EPI)NonAf 82 (>60 ml/min/1.73 sqM) Glucose 113 H (74-99) mg/dL Calcium 9.4 (8.4-10.2) mg/dL Phosphorus 4.5 (2.5-4.5) mg/dL Magnesium 2.1 (1.6-2.3) mg/dL Total Bilirubin 0.5 (0.2-1.3) mg/dL AST 26 (17-59) U/L ALT 21 (4-49) U/L Alkaline Phosphatase 109 (38-126) U/L Troponin I (0.000-0.034) ng/mL NT-Pro-B Natriuret Pep 244 pg/mL Total Protein 7.4 (6.3-8.2) g/dL Albumin 4.4 (3.5-5.0) g/dL Serum Alcohol mg/dL 01/02/24 01/02/24 Range/Units 21:46 21:46 WBC (3.8-10.6) k/uL RBC (4.30-5.90) m/uL Hgb (13.0-17.5) gm/dL Hct (39.0-53.0) % MCV (80.0-100.0) fL MCH (25.0-35.0) pg MCHC (31.0-37.0) g/dL RDW (11.5-15.5) % Plt Count (150-450) k/uL MPV Neutrophils % % Lymphocytes % % Monocytes % % Eosinophils % % Basophils % % Neutrophils # (1.3-7.7) k/uL Lymphocytes # (1.0-4.8) k/uL Monocytes # (0-1.0) k/uL Eosinophils # (0-0.7) k/uL Basophils # (0-0.2) k/uL PT (10.0-12.5) sec INR (<1.2) APTT (22.0-30.0) sec Sodium (137-145) mmol/L Potassium (3.5-5.1) mmol/L Chloride (98-107) mmol/L Carbon Dioxide (22-30) mmol/L Anion Gap mmol/L BUN (9-20) mg/dL Creatinine (0.66-1.25) mg/dL Est GFR (CKD-EPI)AfAm (>60 ml/min/1.73 sqM) Est GFR (CKD-EPI)NonAf (>60 ml/min/1.73 sqM) Glucose (74-99) mg/dL Calcium (8.4-10.2) mg/dL Phosphorus (2.5-4.5) mg/dL Magnesium (1.6-2.3) mg/dL Total Bilirubin (0.2-1.3) mg/dL AST (17-59) U/L ALT (4-49) U/L Alkaline Phosphatase (38-126) U/L Troponin I <0.012 (0.000-0.034) ng/mL NT-Pro-B Natriuret Pep pg/mL Total Protein (6.3-8.2) g/dL Albumin (3.5-5.0) g/dL Serum Alcohol <10 mg/dL - Radiology Data Radiology results: report reviewed (Chest x-ray is negative for acute disease), image reviewed Critical Care Time Critical Care Time: Yes Total Critical Care Time: 31 Disposition Clinical Impression: Tachycardia, Palpitations, Atrial fibrillation, Atrial flutter, New onset atrial fibrillation, Atrial fibrillation with rapid ventricular response Disposition: ADMITTED IP TO THIS HOSP Condition: Fair Is patient prescribed a controlled substance at d/c from ED?: No Referrals: Mary Alston MD [Primary Care Provider] - 1-2 days
[2024-01-02] MEDS: LORazepam 2 MG/ML INJ IV STA (21:59)
[2024-01-02] MEDS: SODIUM CHLORIDE 0.9% 1,000 ML IV STA (21:59)
[2024-01-02 22:08] LABS: Basophils # (A) 0.1 k/uL (0-0.2); Basophils % (A) 1 %; Eosinophils # (A) 0.2 k/uL (0-0.7); Eosinophils % (A) 3 %; HCT 45.7 % (39.0-53.0); HGB 15.1 gm/dL (13.0-17.5); Lymphocytes # (A) 1.7 k/uL (1.0-4.8); Lymphocytes % (A) 26 %; MCH 30.9 pg (25.0-35.0); MCV 93.5 fL (80.0-100.0); Mean Platelet Volume 7.7; Monocytes # (A) 0.5 k/uL (0-1.0); Monocytes % (A) 7 %; Neutrophils % (A) 62 %; Platelet Count 158 k/uL (150-450); RBC 4.89 m/uL (4.30-5.90); RDW 12.5 % (11.5-15.5); WBC 6.6 k/uL (3.8-10.6)
[2024-01-02 22:19] LABS: INR 0.9 (<1.2); Partial Thromboplastin Time 23.9 sec (22.0-30.0); Prothrombin Time 10.4 sec (10.0-12.5)
[2024-01-02] MEDS: DILTIAZEM 125 MG in SODIUM CHLORIDE 0.9% 100 ML IV SCH (22:26)
[2024-01-02] MEDS: DILTIAZEM DRIP BOLUS FROM BAG 1 MG SOLN IV ONE (22:27)
[2024-01-02 22:38] LABS: ALT 21 U/L (4-49); AST 26 U/L (17-59); African American GFR (CKD) >90 (>60 ml/min/1.73 sqM); Albumin 4.4 g/dL (3.5-5.0); Alkaline Phosphatase 109 U/L (38-126); Anion Gap 6 mmol/L; Blood Urea Nitrogen 35 mg/dL (9-20); Calcium 9.4 mg/dL (8.4-10.2); Carbon Dioxide 27 mmol/L (22-30); Chloride 106 mmol/L (98-107); Glucose 113 mg/dL (74-99); Magnesium 2.1 mg/dL (1.6-2.3); Non-African American GFR(CKD) 82 (>60 ml/min/1.73 sqM); Phosphorus 4.5 mg/dL (2.5-4.5); Potassium 5.1 mmol/L (3.5-5.1); Sodium 139 mmol/L (137-145); Total Bilirubin 0.5 mg/dL (0.2-1.3); Total Protein 7.4 g/dL (6.3-8.2)
[2024-01-02 22:46] LABS: NT-Pro-B-Type Natriuretic Pept 244 pg/mL
[2024-01-02] MEDS ORDERED: ONDANSETRON 4 MG/2 ML VIAL IVP PRN (23:02)
[2024-01-02] MEDS ORDERED: NALOXONE 0.4 MG/ML 1 ML VIAL IV PRN (23:02)
[2024-01-02] MEDS ORDERED: MORPHINE SULFATE 4 MG/ML SYRINGE IV PRN (23:02)
[2024-01-02] MEDS ORDERED: HEPARIN SODIUM 1,000 UN/ML (10ML VL) IV PRN (23:04)
[2024-01-02] MEDS: MAGNESIUM SULFATE-D5W PMX 1 GM in DEXTROSE/WATER 1 100ML.BAG IVPB ONE (23:54)
[2024-01-02] MEDS: HEPARIN SODIUM 1,000 UN/ML (10ML VL) IV ONE (23:59)
[2024-01-03] MEDS: HEPARIN SOD,PORK IN 0.45% NACL 25,000 UNIT in 0.45% NACL 1 250ML.BAG IV SCH
[2024-01-03] MEDS: SODIUM CHLORIDE 0.9% 1,000 ML IV SCH (00:01)
[2024-01-03] MEDS: METOPROLOL TARTRATE 5 MG/5 ML VIAL IVP STA (00:02)
--- NOTE | 2024-01-03 01:25 | XR ---
EXAM: XR Chest, 1 View CLINICAL HISTORY: ITS.REASON XR Reason: sob TECHNIQUE: Frontal view of the chest. COMPARISON: No relevant prior studies available. FINDINGS: Lungs: No consolidation or mass. Pleural space: No acute findings. Heart: No cardiomegaly. Bones/joints: No acute findings. IMPRESSION: No acute cardiopulmonary process.
[2024-01-03 01:49] VITALS: RESP 16
[2024-01-03 09:20] VITALS: TEMP 97.6
[2024-01-03] MEDS: DILTIAZEM CD 120 MG CAP.ER.24H PO SCH (11:34)
[2024-01-03] MEDS: APIXABAN 5 MG TAB PO SCH (11:34)
[2024-01-03 11:41] VITALS: BP 141/76; PULSE 60
--- NOTE | 2024-01-03 12:36 | P.CRDCN ---
History of Present Illness Consult date: 01/03/24 Reason for Consult (text): New A-fib RVR History of present illness: This is a 73-year-old male patient of Dr. Shadia Gates, product lead, with past medical history of TIA in 1983, COPD, remote history of tobacco use and dependence. We have been asked to evaluate the patient for new onset of atrial fibrillation. Patient states that he developed shortness of breath and palpitations noticed that his heart rate was varying up to the 140-150 range to 80. He states he has had a stress test as well as left heart cath done in the past and found no blockages did not require stent. He had a TIA in 1983 no underlying cause was identified. Patient has quit smoking a while back. He is drinking alcohol less than a sixpack per week. He drinks 2 cups of coffee per day. Only family history is of mom with atrial fibrillation. Blood pressure 1 06/72, heart rate 80, pulse ox 98% on room air. Patient has been started on heparin drip, Cardizem bolus followed by drip, magnesium replacement 1 g. Treatment options were discussed with the patient and his and it was determined patient would be started on oral Cardizem. He has converted to a sinus rhythm early this morning. Patient denies any symptoms at this time. Echocardiogram has been obtained and report is pending. -EKG: Atrial fibrillation with ventricular rate of 141 bpm, #2 sinus rhythm at 56 bpm -Chest x-ray: No acute process -Laboratory studies: CBC, INR, electrolytes within normal limits. BUN 35 and creatinine 0.92. Troponins negative x 3. Liver function tests are normal. Magnesium 2.1. TSH 1.71. Serum alcohol less than 10. -Home cardiac medications: Aspirin 81 mg daily, atorvastatin 10 mg daily Review Of Systems: At the time of my exam: CONSTITUTIONAL: Denies fever or chills. HEENT: Denies blurred vision, vision changes, or eye pain. Denies hemoptysis CARDIOVASCULAR: Denies chest pain. Denies orthopnea. Denies PND. Denies palpitations RESPIRATORY: Denies shortness of breath. GASTROINTESTINAL: Denies abdominal pain. Denies nausea or vomiting. HEMATOLOGIC: Denies bleeding disorders. GENITOURINARY: Denies any blood in urine. SKIN: Denies puritis. Denies rash. Physical examination: Gen: This is a 73-year-old male in no acute distress VS: reviewed HEENT: Head is atraumatic, normocephalic. Pupils equal, round. Sclerae is anicteric. NECK: Supple. No JVD. LUNGS: Clear to auscultation. No wheezes or rhonchi. No intercostal retractions. HEART: Regular rate and rhythm. No murmur. ABDOMEN: Soft No tenderness. EXTREMITIES: No pedal edema. No calf tenderness. NEUROLOGICAL: Patient is awake, alert and oriented x3. Assessment: New onset paroxysmal atrial fibrillation presenting with RVR, converted to sinus rhythm TIA COPD Remote history of tobacco use and dependence Plan: Discontinue Cardizem drip Discontinue heparin drip and start patient on Eliquis 5 mg daily Start patient on Cardizem CD 120 mg daily Discontinue aspirin at the time of discharge Obtain 2-D echocardiogram and Doppler study to assess cardiac structure and function Patient is cleared for discharge later today if echocardiogram is unremarkable. Patient will follow-up with his primary product lead, Dr. Gates Thank you kindly for this consultation. Nurse practitioner note has been reviewed, I agree with documented findings and plan of care. Patient was seen and examined. Past Medical History Past Medical History: CVA/TIA, GERD/Reflux, Hyperlipidemia, Prostate Disorder Additional Past Medical History / Comment(s): pericardial effusion, BPH, TIA 1984 History of Any Multi-Drug Resistant Organisms: None Reported Past Surgical History: Appendectomy, Cholecystectomy, Heart Catheterization, Orthopedic Surgery Additional Past Surgical History / Comment(s): Rt knee arthroscopy x2, Lt knee arthroscopy, lesions removed from rectum Past Anesthesia/Blood Transfusion Reactions: No Reported Reaction Additional Past Anesthesia/Blood Transfusion Reaction / Comment(s): No hx of blood transfusion. Past Psychological History: No Psychological Hx Reported Smoking Status: Former smoker Past Alcohol Use History: Occasional Past Drug Use History: None Reported - Past Family History Mother Family Medical History: CVA/TIA Father Family Medical History: Hypertension, Myocardial Infarction ([place]) Medications and Allergies Home Medications Medication Instructions Recorded Confirmed Type Aspirin [Adult Low Dose Aspirin EC] 81 mg PO HS 09/02/18 01/03/24 History Famotidine [Pepcid AC] 20 mg PO AC-LUNCH 09/02/18 01/03/24 History tadalafiL [Cialis] 5 mg PO QAM 09/02/18 01/03/24 History Atorvastatin Calcium 10 mg PO QAM 06/15/23 01/03/24 History Ergocalciferol [Vitamin D2 (1250 1,250 mcg PO Q14D 06/15/23 01/03/24 History Mcg = 45042 Iu)] Ubidecarenone [Co Q-10] 1 tab PO HS 06/15/23 01/03/24 History Latanoprost [Latanoprost 0.005%] 1 drop BOTH EYES HS 01/03/24 01/03/24 History Vit C/E/Zn/Coppr/Lutein/Zeaxan 1 cap PO DAILY 01/03/24 01/03/24 History [Preservision Areds 2 Softgel] Allergies Allergy/AdvReac Type Severity Reaction Status Date / Time hydrocodone [From Vicodin] Allergy Hallucinati Verified 01/03/24 10:40 ons propoxyphene Allergy Abdominal Verified 01/03/24 10:40 [From Darvocet-N] Pain Physical Exam Vitals: Vital Signs Temp Pulse Pulse Resp BP BP Pulse Ox 01/03/24 04:00 80 16 106/72 98 01/03/24 00:30 98.3 F 120 H 16 127/66 98 01/03/24 00:26 97.9 F 95 18 117/83 98 01/02/24 23:00 102 H 20 114/92 98 01/02/24 22:41 102 H 20 110/80 97 01/02/24 22:28 142 H 18 118/84 97 01/02/24 22:05 149 H 20 136/83 97 01/02/24 22:00 149 H 01/02/24 21:27 97.8 F 80 16 115/80 96 Intake and Output 01/02/24 01/03/24 01/03/24 22:59 06:59 14:59 Intake Total 59.893 Output Total 400 400 Balance -340.107 -400 Intake: Intake, IV Titration 59.893 Amount Heparin Sod,Pork in 0.45% 59.893 NaCl 25,000 unit In 0.45 % NaCl 1 250ml.bag @ 12 UNITS/KG/HR 9.144 mls/hr IV .Q24H LITZY Rx#: [id number] Output: Urine 400 400 Other: Voiding Method Toilet # Voids 1 1 Weight 76.204 kg 74.5 kg Results 01/02/24 21:46 01/02/24 21:46 Cardiac Enzymes 01/02/24 01/02/24 01/03/24 Range/Units 21:46 21:46 01:21 AST 26 (17-59) U/L Troponin I <0.012 <0.012 (0.000-0.034) ng/mL 01/03/24 Range/Units 05:59 AST (17-59) U/L Troponin I 0.015 (0.000-0.034) ng/mL Coagulation 01/02/24 01/03/24 Range/Units 21:46 05:59 PT 10.4 (10.0-12.5) sec APTT 23.9 41.7 H (22.0-30.0) sec CBC 01/02/24 Range/Units 21:46 WBC 6.6 (3.8-10.6) k/uL RBC 4.89 (4.30-5.90) m/uL Hgb 15.1 (13.0-17.5) gm/dL Hct 45.7 (39.0-53.0) % Plt Count 158 (150-450) k/uL Comprehensive Metabolic Panel 01/02/24 Range/Units 21:46 Sodium 139 (137-145) mmol/L Potassium 5.1 (3.5-5.1) mmol/L Chloride 106 (98-107) mmol/L Carbon Dioxide 27 (22-30) mmol/L BUN 35 H (9-20) mg/dL Creatinine 0.92 (0.66-1.25) mg/dL Glucose 113 H (74-99) mg/dL Calcium 9.4 (8.4-10.2) mg/dL AST 26 (17-59) U/L ALT 21 (4-49) U/L Alkaline Phosphatase 109 (38-126) U/L Total Protein 7.4 (6.3-8.2) g/dL Albumin 4.4 (3.5-5.0) g/dL Current Medications Generic Name Dose Route Start Last Admin Trade Name Freq PRN Reason Stop Dose Admin Heparin Sodium (Porcine) 0 unit 01/02/24 23:04 Heparin Sodium 1,000 Un/Ml (10ml Vl) IV PER PROTOCOL PRN Low PTT Protocol Diltiazem HCl 125 mg/ Sodium 125 mls @ 5 mls/hr 01/02/24 22:15 01/02/24 22:26 Chloride IV 5 mg/hr .Q24H LITZY 5 mls/hr Administration 5 MG/HR Sodium Chloride 1,000 mls @ 75 mls/hr 01/02/24 23:15 01/03/24 00:01 Saline 0.9% IV 75 mls/hr .[id number] L[facility]ZY Administration Heparin Sodium/Sodium Chloride 250 mls @ 9.144 mls/hr 01/02/24 23:15 01/03/24 06:33 25,000 unit/ Sodium Chloride IV 14 units/kg/hr .Q24H L[facility]ZY 10.669 mls/hr Titration Protocol 12 UNITS/KG/HR Morphine Sulfate 4 mg 01/02/24 23:02 Morphine Sulfate 4 Mg/Ml Syringe IV Q4HR PRN Severe Pain (Scale 7 to 10) Naloxone HCl 0.2 mg 01/02/24 23:02 Naloxone 0.4 Mg/Ml 1 Ml Vial IV Q2M PRN Opioid Reversal Ondansetron HCl 4 mg 01/02/24 23:02 Ondansetron 4 Mg/2 Ml Vial IVP Q8HR PRN Nausea And Vomiting Intake and Output 01/02/24 01/03/24 01/03/24 22:59 06:59 14:59 Intake Total 59.893 Output Total 400 400 Balance -340.107 -400 Intake: Intake, IV Titration 59.893 Amount Heparin Sod,Pork in 0.45% 59.893 NaCl 25,000 unit In 0.45 % NaCl 1 250ml.bag @ 12 UNITS/KG/HR 9.144 mls/hr IV .Q24H [facility] Rx#: [id number] Output: Urine 400 400 Other: Voiding Method Toilet # Voids 1 1 Weight 76.204 kg 74.5 kg 01/02/24 21:46 01/02/24 21:46
--- NOTE | 2024-01-03 13:55 | CA ---
Transthoracic Echo Report Name: Damir Armstrong Age: 73 Gender: M : 1950 Exam Date: 01/03/2024 08:28 Exam Location: [facility] Ht (in): 74 Wt (lb): 168 Ordering Physician: Aime Rooney DO Attending/Referring Phys: Perinatal Coordinator Diane Aguilar RDCS Procedure CPT: Indications: afib Cardiac Hx: Technical Quality: Good Contrast 1: Total Dose (mL): Contrast 2: Total Dose (mL): MEASUREMENTS (Male / Female) Normal Values 2D ECHO LV Diastolic Diameter PLAX 4.4 cm 4.2 - 5.9 / 3.9 - 5.3 cm LV Systolic Diameter PLAX 3.1 cm IVS Diastolic Thickness 1.2 cm 0.6 - 1.0 / 0.6 - 0.9 cm LVPW Diastolic Thickness 1.2 cm 0.6 - 1.0 / 0.6 - 0.9 cm LV Relative Wall Thickness 0.5 RV Internal Dim ED PLAX 3.6 cm LA Systolic Diameter LX 3.8 cm 3.0 - 4.0 / 2.7 - 3.8 cm LV Diastolic Volume MOD 4C 88.7 cm??? LV Systolic Volume MOD 4C 31.3 cm??? LV Ejection Fraction MOD 4C 64.7 % LV Cardiac Index MOD 4C 1702.3 cm???/min???m??? LV Diastolic Length 4C 8.3 cm LV Systolic Length 4C 6.4 cm LV Diastolic Volume MOD 2C 73.5 cm??? LV Systolic Volume MOD 2C 25.6 cm??? LV Ejection Fraction MOD 2C 65.2 % LV Cardiac Index MOD 2C 1422.3 cm???/min???m??? LV Diastolic Length 2C 9.2 cm LV Systolic Length 2C 7.3 cm M-MODE Aortic Root Diameter MM 3.7 cm LA Systolic Diameter MM 2.2 cm LA Ao Ratio MM 0.6 DOPPLER AV Peak Velocity 137.9 cm/s AV Peak Gradient 7.6 mmHg Mitral E Point Velocity 65.9 cm/s Mitral A Point Velocity 85.8 cm/s Mitral E to A Ratio 0.8 MV Deceleration Time 242.9 ms MV E' Velocity 8.7 cm/s Mitral E to MV E' Ratio 7.6 TR Peak Velocity 272.0 cm/s TR Peak Gradient 29.6 mmHg Right Ventricular Systolic Press 39.6 mmHg FINDINGS Left Ventricle Left ventricular ejection fraction is estimated at 50-55 %. Left ventricular cavity size normal. Mildly increased septal wall thickness. Normal left ventricular wall motion. Right Ventricle Mild right ventricular dilatation. Mild pulmonary hypertension. RVSP estimated at 40 mmHg Right Atrium Mild right atrial dilatation. No right atrial thrombus or mass seen. Left Atrium Normal left atrial size. No left atrial thrombus or mass present. Mitral Valve Structurally normal mitral valve. Trace to mild mitral regurgitation. Aortic Valve Trileaflet aortic valve. No aortic valve stenosis or regurgitation. Tricuspid Valve Structurally normal tricuspid valve. Mild tricuspid regurgitation. Pulmonic Valve Structurally normal pulmonic valve. No pulmonic regurgitation. Pericardium No pericardial or pleural effusion. Aorta Normal size aortic root and proximal ascending aorta. CONCLUSIONS LVEF 50 to 55% No obvious regional wall motion abnormality Mild septal wall hypertrophy Mild RV dilatation. RVSP estimated at 40 mmHg Mild right atrial dilatation. No obvious valvular dysfunction Previewed by: Dr Jl Casillas (Electronically Signed) Final Date: 03 January 2024 13:54
--- NOTE | 2024-01-04 01:50 | HP ---
HISTORY AND PHYSICAL This is a combined history and physical and discharge summary. CHIEF COMPLAINT: Arrhythmia, palpitation. HISTORY OF PRESENT ILLNESS: This 73-year-old gentleman with a past history of COPD, admitted with atrial fibrillation with fast ventricular rate. The patient is being followed by Dr. Alston in the outpatient setting. The patient is given Cardizem, the rate improved, and 2D echo with Doppler showed ejection fraction of 50% to 55%. Cardiology recommended outpatient followup. No chest pain or palpitation. PAST MEDICAL HISTORY: Reviewed and includes COPD. Rest of the history and rest of the chart are also reviewed. Hyperlipidemia. HOME MEDICATIONS: Latanoprost. Rest of the medications is noted. ALLERGIES: Vicodin. FAMILY HISTORY: History of CVA, TIA. SOCIAL HISTORY: History of smoking. REVIEW OF SYSTEMS: Fourteen-point review is negative except as mentioned earlier. PHYSICAL EXAMINATION: VITAL SIGNS: Pulse is 60, blood pressure 141/76, respirations 16. HEENT: Conjunctivae normal. NECK: No JVD. CARDIOVASCULAR: S1, S2. RESPIRATIONS: Breath sounds diminished at bases. A few rhonchi. ABDOMEN: Soft. NERVOUS SYSTEM: Nonfocal. LABORATORY DATA: Reviewed. ASSESSMENT: 1. Paroxysmal atrial fibrillation with rapid ventricular rate. 2. History of cerebrovascular accident, transient ischemic attack. 3. Hyperlipidemia. 4. History of pericardial effusion. RECOMMENDATIONS: This 73-year-old gentleman presented with multiple medical problems. Currently, the patient is stable. Cardiology saw the patient and recommended Ecotrin 81 mg at bedtime. Continue to follow up in the outpatient setting. Rest of the home medications will be continued, and follow up with primary physician and Cardiology. MMODL / IJN: [id number] /
--- NOTE | 2024-01-04 10:23 | P.DS ---
Providers Date of admission: 01/02/24 23:04 Expected date of discharge: 01/03/24 Attending physician: Shaila Kessler Consults: 01/02/24 23:02 Consult Physician Routine Consulting Provider: Judy Morris Consult Reason/Comments: [email or web address] Do you want consulting provider notified?: Yes Primary care physician: Mary Alston Hospital Course: Final diagnosis Paroxysmal atrial fibrillation with RVR, currently rate controlled History of CVA, TIA Hyperlipidemia History of pericardial effusion GI prophylaxis DVT prophylaxis Full code Discharge disposition Patient is being discharged in a stable condition with guarded prognosis to home. Patient will follow-up with Dr. Alston in the outpatient setting upon discharge. Patient is to continue with Eliquis and outpatient follow-up with cardiology as scheduled. Total time taken is greater than 35 minutes. Hospital course This is a 73-year-old male who was recently admitted with A-fib with RVR being followed by cardiology maintained on Cardizem and heparin. Patient has transition to Eliquis and also started on Cardizem oral. Patient reports to feeling well and has been cleared by cardiology. Recommend outpatient follow-up with cardiology as well as primary care provider Dr. Alston this week. Please refer to cardiology notes for further HPI. Currently no reports of chest pain, shortness of breath, or palpitations. Patient is afebrile. No reports of nausea or vomiting and patient is tolerating diet. Patient will be discharged home today. Physical exam: Gen: This is a 73-year-old male who is awake, alert and oriented x 3, well- developed, thin built HEENT: Head is atraumatic, normocephalic. Pupils equal, round. Sclerae is anicteric. NECK: Supple. No JVD. No lymphadenopathy. No thyromegaly. LUNGS: Diminished breath sounds bilaterally otherwise clear to auscultation. No wheezes or rhonchi. No intercostal retractions. HEART: S1, S2 are muffled ABDOMEN: Soft. Thin. Bowel sounds are present. No masses. No tenderness. EXTREMITIES: No pedal edema. No calf tenderness. NEUROLOGICAL: Patient is awake, alert and oriented x3. Cranial nerves 2 through 12 are grossly intact. Please refer to medication reconciliation sheet for a list of medications. The impression and plan of care has been dictated by Mallory Dockery, Nurse Practitioner as directed. Dr. Checo MD I have performed a history and examination and MDM of this patient, discussed the same with the dictator, and agree with the dictator's assessment and plan as written ,documented as a scribe. Based on total visit time, I have performed more than 50% of the visit. Patient Condition at Discharge: Fair Plan - Discharge Summary Discharge Rx Participant: No New Discharge Prescriptions: New Diltiazem Cd [Cardizem CD] 120 mg PO DAILY #30 cap Apixaban [Eliquis] 5 mg PO BID #60 tab Continue tadalafiL [Cialis] 5 mg PO QAM Famotidine [Pepcid AC] 20 mg PO AC-LUNCH Atorvastatin Calcium 10 mg PO QAM Ubidecarenone [Co Q-10] 1 tab PO HS Ergocalciferol [Vitamin D2 (1250 Mcg = 60092 Iu)] 1,250 mcg PO Q14D Vit C/E/Zn/Coppr/Lutein/Zeaxan [Preservision Areds 2 Softgel] 1 cap PO DAILY Latanoprost [Latanoprost 0.005%] 1 drop BOTH EYES HS Discontinued Aspirin [Adult Low Dose Aspirin EC] 81 mg PO HS Discharge Medication List Famotidine [Pepcid AC] 20 mg PO AC-LUNCH 09/02/18 [History] tadalafiL [Cialis] 5 mg PO QAM 09/02/18 [History] Atorvastatin Calcium 10 mg PO QAM 06/15/23 [History] Ergocalciferol [Vitamin D2 (1250 Mcg = 07188 Iu)] 1,250 mcg PO Q14D 06/15/23 [History] Ubidecarenone [Co Q-10] 1 tab PO HS 06/15/23 [History] Apixaban [Eliquis] 5 mg PO BID #60 tab 01/03/24 [Rx] Diltiazem Cd [Cardizem CD] 120 mg PO DAILY #30 cap 01/03/24 [Rx] Latanoprost [Latanoprost 0.005%] 1 drop BOTH EYES HS 01/03/24 [History] Vit C/E/Zn/Coppr/Lutein/Zeaxan [Preservision Areds 2 Softgel] 1 cap PO DAILY 01/03/24 [History] Follow up Appointment(s)/Referral(s): Shadia Gates MD [REFERRING] - 1 Week Mary Alston MD [Primary Care Provider] - 1-2 days Patient Instructions/Handouts: A-fib (Atrial Fibrillation) (DC) Activity/Diet/Wound Care/Special Instructions: Activity limited until follow-up Follow-up with primary care provider on discharge Follow-up with your pulp machine operator this week Continue taking medications as prescribed Discharge Disposition: HOME SELF-CARE
== END 2024-01-03 14:50 | disposition home or self-care (01) | DRG 310 ==
LOC: EC 21:25 → 3SCARD 23:04
PROVIDERS: ADMIT Hospitalist; ATTEND Hospitalist
DX: I48.0 Paroxysmal atrial fibrillation (principal); E78.5 Hyperlipidemia, unspecified; J44.9 Chronic obstructive pulmonary disease, unspecified; F41.9 Anxiety disorder, unspecified; N40.0 Benign prostatic hyperplasia without lower urinary tract symptoms; K21.9 Gastro-esophageal reflux disease without esophagitis; Z87.891 Personal history of nicotine dependence; Z86.73 Personal history of transient ischemic attack (TIA), and cerebral infarction without residual deficits; Z79.82 Long term (current) use of aspirin; Z79.899 Other long term (current) drug therapy; Z88.5 Allergy status to narcotic agent
CPT/HCPCS: 36415; 71045; 80053; 80320; 83735; 83880; 84100; 84443; 84484; 85025; 85610; 85730; 93005; 93306; 96365; 96366; 96368; 96375; 99291